=== PATIENT | male | born 1950 | race Caucasian/White ===

== ENCOUNTER 2021-07-26 05:37 | Day surgery (SDC) | payer OTHER ==
[2021-07-24 16:11] VITALS: BMI 24.5
[2021-07-26 09:19] VITALS: TEMP 97.6
[2021-07-26 11:02] VITALS: BP 118/77; PULSE 61
== END 2021-07-26 10:15 | disposition home or self-care (01) ==
LOC: JASU-ENDO 05:37
PROVIDERS: ATTEND Internal Medicine Gastroenterology
PROC: 0DBK8ZX Excision of Ascending Colon, Via Natural or Artificial Opening Endoscopic, Diagnostic (ICD-10-PCS; principal; 2021-07-26)
PROC: 0DBN8ZX Excision of Sigmoid Colon, Via Natural or Artificial Opening Endoscopic, Diagnostic (ICD-10-PCS; 2021-07-26)
DX: Z12.11 Encounter for screening for malignant neoplasm of colon (principal); D12.7 Benign neoplasm of rectosigmoid junction; D12.2 Benign neoplasm of ascending colon; K57.30 Diverticulosis of large intestine without perforation or abscess without bleeding; K64.8 Other hemorrhoids; Z86.010 Personal history of colon polyps
CPT/HCPCS: 88305-TC